=== PATIENT | female | born 1935 | race Caucasian/White ===

== ENCOUNTER 2021-11-22 09:33 | Emergency (ER) | payer MEDICARE ==
[2021-11-22] MEDS ORDERED: Boostrix 0.5 ML (Tdap) VIAL ONE (10:47)
[2021-11-22] MEDS ORDERED: Bacitracin 1 PK ONE (10:47)
[2021-11-22] MEDS ORDERED: traMADol HCl 50 MG TAB ONE (10:57)
== END 2021-11-22 11:31 | disposition home or self-care (01) ==
LOC: BURERS 09:33
DX: S52.501A Unspecified fracture of the lower end of right radius, initial encounter for closed fracture (principal); S42.451A Displaced fracture of lateral condyle of right humerus, initial encounter for closed fracture; S01.81XA Laceration without foreign body of other part of head, initial encounter; S83.91XA Sprain of unspecified site of right knee, initial encounter; E11.9 Type 2 diabetes mellitus without complications; I10 Essential (primary) hypertension; W19.XXXA Unspecified fall, initial encounter
CPT/HCPCS: 70450; 72125; 90471; 90715

== ENCOUNTER 2024-03-11 18:45 | Emergency (ER) | payer MEDICARE, OTHER ==
[2024-03-11] MEDS ORDERED: Lidocaine 1%/Epinephrine 1:100K 10 ML VIAL ONE (18:59)
[2024-03-11] MEDS ORDERED: Bacitracin 1 PK ONE (19:47)
== END 2024-03-11 19:59 | disposition home or self-care (01) ==
LOC: BURERS 18:45
DX: S01.81XA Laceration without foreign body of other part of head, initial encounter (principal); E11.9 Type 2 diabetes mellitus without complications; I10 Essential (primary) hypertension; W01.198A Fall on same level from slipping, tripping and stumbling with subsequent striking against other object, initial encounter
CPT/HCPCS: 12014; 99282

== ENCOUNTER 2024-03-18 10:19 | Emergency (ER) | payer MEDICARE | END 2024-03-18 10:42 | disposition home or self-care (01) | LOC: BURERS 10:19 | DX: S01.81XD Laceration without foreign body of other part of head, subsequent encounter (principal); E11.9 Type 2 diabetes mellitus without complications; I10 Essential (primary) hypertension; X58.XXXD Exposure to other specified factors, subsequent encounter ==